=== PATIENT | female | born 1985 | race Caucasian/White ===

== ENCOUNTER → 2021-05-12 | Outpatient (CLI) | payer BC ==
[2021-05-12 15:44] LABS: HCG, SERUM QUANTITATIVE < 1.0 MIU/ML; PROGESTERONE 0.84 NG/ML
== END ==
LOC: M LAB 14:07
PROVIDERS: ATTEND Obstetrics & Gynecology Reproductive Endocrinology
DX: Z32.00 Encounter for pregnancy test, result unknown (principal); Z31.41 Encounter for fertility testing